=== PATIENT | male | born 1980 | race Caucasian/White ===

== ENCOUNTER → 2017-06-23 | Emergency (ER) | payer OTHER ==
[~2017-06-23] VITALS: Ht 185.4 cm; Wt 90.7 kg
[~2017-06-23] MED LIST: ANECREAM5 GM TOP; MEDROLPACK PO; MUPIROCIN15 GM TOP; PREVACID30 MG PO; VALACYCLOVIR1000 MG PO; ZANTAC300 MG PO
== END | disposition home or self-care (01) ==
LOC: ER 08:07
DX: A60.1 Herpesviral infection of perianal skin and rectum (principal)